=== PATIENT | male | born 1950 | race Hispanic/Latino ===

== ENCOUNTER 2017-11-03 06:13 | Day surgery (SDC) | payer OTHER ==
[2017-11-02 08:04] VITALS: BP 88/15
[~2017-11-03] VITALS: Ht 162.6 cm; Wt 66.5 kg
[~2017-11-03 06:13] MED LIST: AEC81 PO; FOLI1TAB85 PO; INSU100I13 SQ; LISI40TA4 PO; METO50TA18 PO; MINO2.5T3 PO; PRAV20TA4 PO
[2017-11-03 06:35] VITALS: BP 152/68
[2017-11-03] MEDS ORDERED: SODIUM CHLORIDE 0.9% 1000ML 1,000 ML IV ONE (07:11)
[2017-11-03 07:30] LABS: POTASSIUM 4.7 mmol/L (3.5-5.1)
[2017-11-03] MEDS ORDERED: PROPOFOL 10 MG/ML 20ML VIAL IV ONE (07:31)
[2017-11-03] MEDS ORDERED: FENTANYL CITRATE PF 50 MCG/1 ML 2ML VIAL ONE (07:32)
[2017-11-03] MEDS ORDERED: LIDOCAINE HCL 1% 20 ML VIAL ONE (07:32)
[2017-11-03] MEDS ORDERED: GLYCOPYRROLATE 0.2 MG/ML 5 ML VIAL ONE (07:32)
[2017-11-03] MEDS ORDERED: EPHEDRINE SULFATE 50 MG/ML AMPULE ONE (07:46)
[2017-11-03] MEDS ORDERED: PHENYLEPHRINE HCL 10 MG/ML 1ML VIAL IV ONE (07:53)
[2017-11-03 09:50] LABS: CREATININE 7.1 mg/dL (0.5-1.5)
== END 2017-11-03 08:40 ==
LOC: ENDO 06:13 → DAH 06:13 → ENDO 08:40
PROVIDERS: ATTEND Internal Medicine Gastroenterology
DX: D12.3 Benign neoplasm of transverse colon (principal); D64.89 Other specified anemias; E78.4 Other hyperlipidemia; I25.10 Atherosclerotic heart disease of native coronary artery without angina pectoris; I12.0 Hypertensive chronic kidney disease with stage 5 chronic kidney disease or end stage renal disease; N18.6 End stage renal disease; E11.22 Type 2 diabetes mellitus with diabetic chronic kidney disease; Z99.2 Dependence on renal dialysis; Z86.73 Personal history of transient ischemic attack (TIA), and cerebral infarction without residual deficits; Z79.4 Long term (current) use of insulin; Z79.82 Long term (current) use of aspirin; Z79.899 Other long term (current) drug therapy
CPT/HCPCS: 36415; 45380; 45385; 80048; 82948 ×2; 88305; 93005; A4606; J2370; J2704; J3010; J3490 ×2; J7030